=== PATIENT | male | born 1975 | race Two or more races ===

== ENCOUNTER 2024-08-05 11:32 | Emergency (ER) | payer OTHER ==
[~2024-08-05] VITALS: Ht 193 cm; Wt 114.0 kg
--- NOTE | 2024-08-05 11:52 | ED.PDOC ---
HPI Comments 49Y M presents to ED via EMS for chief complaint hypertension with headache, dizziness, weakness, and nausea. Pt states he has never experienced these symptoms before. 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 While at urgent care, pt was found to be hypertensive with SBP 180s-190s so they called 911. Upon EMS arrival, SBP was in the low 180s and pt was transferred to ED dept. Upon ED arrival, pt states symptoms have improved and he no longer has nausea. BP in ED 183/93. Per pt, PCP has not diagnosed pt with HTN but has been told he is "borderline hypertensive". Pt denies vision loss, chest pain, and SOB. No other symptoms reported. Time Seen by MD: 11:35 Reviewed Notes: Nurses Notes, Sports Team Manager Notes, Medications, Allergies Allergies: Coded Allergies: NO KNOWN ALLERGIES (Unverified , 08/05/24) Information Source: Patient, Emergency Med Personnel Mode of Arrival: EMS Brought in by: EMS Severity: Mild Timing: Hours Duration: Since onset Prehospital treatment: 12 Lead EKG Onset: At Rest Cardiac Risk Factors: None PE Risk Factors: None History of: None Modifying Factors: Nothing Associated Signs and Symptoms: Other Past Medical History PAST MEDICAL HISTORY: HTN Surgical History: Denies all surgeries Family History Family History: Unknown Social History Smoker: Non-Smoker Alcohol: Occasionally Drugs: Denies Drug Use Lives In: Home Constitutional: reports: weakness; denies: chills, diaphoresis, fatigue, fever, malaise, sweats, others EENTM: denies: blurred vision, double vision, ear bleeding, ear discharge, ear drainage, ear pain, ear ringing, eye pain, eye redness, hearing loss, mouth pain, mouth swelling, nasal discharge, nose bleeding, nose congestion, nose pain, photophobia, tearing, throat pain, throat swelling, voice changes, others Respiratory: denies: cough, hemoptysis, orthopnea, SOB at rest, shortness of breath, SOB with excertion, stridor, wheezing, others Cardiovascular: denies: chest pain, dizzy spells, diaphoresis, Dyspnea on exertion, edema, irregular heart beat, left arm pain, lightheadedness, palpitations, PND, syncope, others Gastrointestinal: reports: nausea; denies: abdomen distended, abdominal pain, blood streaked bowels, constipated, diarrhea, dysphagia, difficulty swallowing, hematemesis, melena, poor appetite, poor fluid intake, rectal bleeding, rectal pain, vomiting, others Genitourinary: denies: burning, dysuria, flank pain, frequency, hematuria, incontinence, penile discharge, penile sore, pain, testicle pain, testicle swelling, urgency, others Neurological: reports: dizziness, headache, weakness; denies: fainting, left sided numbness, left sided weakness, numbness, paresthesia, pre-existing deficit, right sided numbness, right sided weakness, seizure, speech problems, tingling, tremors, others Musculoskeletal: denies: back pain, gout, joint pain, joint swelling, muscle pain, muscle stiffness, neck pain, others Integumetry: denies: bruises, change in color, change in hair/nails, dryness, laceration, lesions, lumps, rash, wounds, others Allergic/Immunocompromised: denies: Difficulty Healing, Frequent Infections, Hives, Itching, others Hematologic/Lymphatic: denies: anemia, blood clots, easy bleeding, easy bruising, swollen glands, others Endocrine: denies: excessive hunger, excessive sweating, excessive thirst, excessive urination, flushing, intolerance to cold, intolerance to heat, unexplained weight gain, unexplained weight loss, others Psychiatric: denies: anxiety, bipolar disorder, depression, hopeless, panic disorder, schizophrenia, sleepless, suicidal, others All Other Systems: Reviewed and Negative Physical Exam General Appearance: No Apparent Distress HEENT: PERRL/EOMI Neck: Full Range of Motion, Normal Inspection Respiratory: Lungs Clear, No Accessory Muscle Use, No Respiratory Distress, Normal Breath Sounds Cardiovascular: No Edema, No JVD, Regular Rate/Rhythm Breast Exam: Deferred Gastrointestinal: Non Tender, Soft Genitalia: Deferred Pelvic: Deferred Rectal: Deferred Extremities: Normal inspection, Normal range of motion, Non-tender, No pedal edema Neurologic: Alert (Oriented x4), Normal Affect, Normal Mood, Other (Ambulatory. No gross focal deficit.) Cerebellar Function: NOT DONE Reflexes: NOT DONE Skin: Dry, Normal Color, Warm Lymphatic: NOT DONE EKG EKG : Comments Sinus rhythm, rate 53, normal intervals, normal axis, normal QRS, nonspecific T change. Was a procedure done? Was a procedure done?: No CP Differential Dx Differential Diagnosis: Electrolyte Disorder, MT Differential Diagnosis: CHF, HTN Essential, HTN Accelerated, HTN Encephalopathy, Other (CVA, TIA) X-Ray, Labs, Meds, VS Vital Signs Date Time Temp Pulse Resp B/P (MAP) Pulse Ox O2 Delivery O2 Flow Rate FiO2 08/05/24 19:46 98.2 69 18 156/87 (110) 98 98.2 08/05/24 18:00 98.4 80 17 153/80 (104) 95 98.4 08/05/24 17:35 68 08/05/24 17:08 97.9 08/05/24 15:15 98.4 08/05/24 15:15 157/83 08/05/24 15:06 98.0 51 19 157/83 (107) 99 98.0 08/05/24 15:06 51 19 97 Room Air* 0 21 08/05/24 11:52 98.5 62 18 183/93 (123) 99 98.5 08/05/24 11:50 53 Lab Test 08/05/24 14:47 08/05/24 11:47 08/05/24 11:30 Range/Units POC Glucose 91 70-106 mg/dl White Blood Count 6.4 4.4-10.8 10^3/uL Red Blood Count 5.10 4.5-5.90 10^6/uL Hemoglobin 15.4 13.5-17.5 g/dL Hematocrit 45.7 41.0-53.0 % Mean Corpuscular Volume 89.7 80.0-100.0 fL Mean Corpuscular Hemoglobin 30.3 28.0-32.0 pg Mean Corpuscular Hemoglobin Concent 33.7 32.0-36.0 g/dL Red Cell Distribution Width 13.0 11.8-14.3 % Platelet Count 242 140-450 10^3/uL Mean Platelet Volume 8.1 6.9-10.8 fL Neutrophils (%) (Auto) 51.4 37.0-80.0 % Lymphocytes (%) (Auto) 32.6 10.0-50.0 % Monocytes (%) (Auto) 10.5 0.0-12.0 % Eosinophils (%) (Auto) 4.7 0.0-7.0 % Basophils (%) (Auto) 0.8 0.0-2.0 % Neutrophils # (Auto) 3.3 1.6-8.6 10 ^3/uL Lymphocytes # (Auto) 2.1 0.4-5.4 10 ^3/uL Monocytes # (Auto) 0.7 0-1.3 10 ^3/uL Eosinophils # (Auto) 0.3 0-0.8 10 ^3/uL Basophils # (Auto) 0 0-0.2 10 ^3/uL Nucleated Red Blood Cells 0.2 % Sodium Level 138 136-145 mmol/L Potassium Level 3.7 3.5-5.1 mmol/L Chloride Level 106 98-107 mmol/L Carbon Dioxide Level 26 20-31 mmol/L Anion Gap 6 5-15 Blood Urea Nitrogen 12 9-23 mg/dL Creatinine 1.01 0.700-1.30 mg/dL Glomerular Filtration Rate Calc 92 >90 mL/min BUN/Creatinine Ratio 11.9 10.0-20.0 Serum Glucose 103 74-106 mg/dL Calcium Level 9.7 8.7-10.4 mg/dL Troponin I High Sensitivity 4 </=54 ng/L B-Type Natriuretic Peptide 16.23 0-100 pg/mL Urine Color Colorless Yellow Urine Clarity Clear Clear Urine pH 6.0 5.0-9.0 Urine Specific [place] 1.002 1.001-1.035 Urine Protein Negative Negative Urine Ketones Negative Negative Urine Blood Negative Negative /uL Urine Nitrite Negative Negative Urine Bilirubin Negative Negative Urine Urobilinogen Normal Negative mg/dL Urine Leukocyte Esterase Negative Negative /uL Urine RBC <1 0 - 3 /hpf Urine Microscopic WBC < 1 0-3 /HPF Urine Squamous Epithelial Cells None seen <5 /hpf Urine Bacteria None seen None Seen /hpf Urine Glucose Normal Normal mg/dL Current Medications Medications (Trade) Dose Ordered Sig/Lang Route Start Time Stop Time Status Last Admin Hydralazine HCl (Apresoline Injection) 10 mg ONCE ONCE IV 08/05/24 11:45 08/05/24 11:46 DC 08/05/24 15:15 Acetaminophen (Tylenol Tablet Or Capsule) 1,000 mg ONCE ONCE PO 08/05/24 11:45 08/05/24 11:46 DC 08/05/24 15:15 ORDERING PHYSICIAN: STEFANO BARRAGAN MD PROCEDURE(s): CXRP - CHEST PORTABLE REASON: high bp ORDER NUMBER(s): [id number], ACCESSION NUMBER(s): [id number] CHEST RADIOGRAPH Indication: high bp Technique: Single frontal view of the chest was obtained COMPARISON: None FINDINGS: Lines and Tubes: None Lungs: Clear Pleura: No effusion. No pneumothorax. Cardiomediastinal contours: Unremarkable Bones: Unremarkable IMPRESSION: No acute disease. . [facility] PHYSICIAN: STEFANO BARRAGAN MD PROCEDURE(s): HWOCT - HEAD WITHOUT CONTRAST REASON: high bp headache dizzy ORDER NUMBER(s): [id number], ACCESSION NUMBER(s): [id number] EXAM: CT HEAD WITHOUT CONTRAST HISTORY: high bp headache dizzy COMPARISON: None TECHNIQUE: Noncontrast axial CT images of the head were performed. Sagittal and coronal reformatted images were obtained. This CT exam was performed using 1 or more of the following dose reduction techniques: Automated exposure control, adjustment of the mA and/or kv according to patient size, or the use of iterative reconstruction techniques. Radiation Dose: CTDI volume is 53.9 mGy. Dose-length product is 973.72 mGy*cm FINDINGS: No intracranial hemorrhage, mass, midline shift, hydrocephalus, or evidence of acute large vessel infarct. There is a prominent perivascular space versus old lacunar infarct of the caudal aspect of the right basal ganglia (image 53, series 601). The partially-visualized paranasal sinuses are clear. The bilateral mastoid air cells and middle ear spaces are clear. No cranial fracture or scalp edema. IMPRESSION: No acute intracranial process. X-Ray, Labs, Meds, VS Comment 49-year-old male with a history of borderline hypertension brought in by EMS from [facility] for evaluation of elevated blood pressure, headache, generalized weakness and nausea. Vitals remarkable for heart rate 53, BP 183/93 Exam unremarkable Rhythm strip independently interpreted by me: Sinus bradycardia, rate 53, no ectopy. Chest x-ray unremarkable Head CT unremarkable CBC, basic metabolic panel, BNP and troponin unremarkable for any abnormality of acute significance The following was ordered for the patient: Hydralazine 20 mg IV, Tylenol 1 g p.o.. Patient was called multiple times for administration of medications, however there was no answer. It was assumed the patient had eloped from the ED. We were able to locate the patient and administer medications. On re- evaluation, patient's heart rate was 51 and blood pressure was 157/83. Case discussed with [facility]. Patient will be transferred to [place] [facility] for further evaluation. Authorization [id number] Time of 1ST Reevaluation: 12:05 Reevaluation 1ST: Unchanged Patient Education/Counseling: Diagnosis, Treatment Family Education/Counseling: No Family Present Departure 1 Departure Time of Disposition: 12:44 Impression: Primary Impression: Hypertensive urgency Additional Impression: Symptomatic bradycardia Disposition: 02 SHORT TERM HOSPITAL Condition: Guarded Critical Care Note Critical Care Time?: No Stability Stability form required: No Heart Score Heart Score: Heart Score Response (Comments) Value History N/A 0 EKG N/A 0 Age N/A 0 Risk Factors N/A 0 Troponin N/A 0 Total 0 I personally scribed for STEFANO BARRAGAN MDBAR) on 08/05/24 at 11:52. Electronically submitted by Anuja Crowder ([facility]). I personally scribed for STEFANO BARRAGAN MDBAR) on 08/05/24 at 12:27. Electronically submitted by Anuja Crowder ([facility]). I personally scribed for STEFANO BARRAGAN MD ([facility]) on 08/05/24 at 12:27. Electronically submitted by Anuja Crowder ([facility]). I personally scribed for STEFANO BARRAGAN MD (CARY) on 08/05/24 at 17:37. Electronically submitted by Anuja Crowder ([facility]). I personally scribed for STEFANO BARRAGAN MD (ASHLEYBAR) on 08/05/24 at 20:39. Electronically submitted by Jean Carlos Encinas ([facility]). STEFANO BARRAGAN MD Aug 05, 2024 11:52
[2024-08-05 11:55] LABS: Basophils # (auto) 0 10 ^3/uL (0-0.2); Basophils % (auto) 0.8 % (0.0-2.0); Eosinophils # (auto) 0.3 10 ^3/uL (0-0.8); Eosinophils % (auto) 4.7 % (0.0-7.0); Hematocrit 45.7 % (41.0-53.0); Hemoglobin 15.4 g/dL (13.5-17.5); Lymphocytes # (auto) 2.1 10 ^3/uL (0.4-5.4); Lymphocytes % (auto) 32.6 % (10.0-50.0); Mean Corpuscular Hemoglobin 30.3 pg (28.0-32.0); Mean Corpuscular Hgb Conc. 33.7 g/dL (32.0-36.0); Mean Corpuscular Volume 89.7 fL (80.0-100.0); Monocytes # (auto) 0.7 10 ^3/uL (0-1.3); Monocytes % (auto) 10.5 % (0.0-12.0); Neutrophils # (auto) 3.3 10 ^3/uL (1.6-8.6); Neutrophils % (auto) 51.4 % (37.0-80.0); Nucleated Red Blood Cells % 0.2 %; Platelet Count (auto) 242 10^3/uL (140-450); White Blood Cell 6.4 10^3/uL (4.4-10.8)
[2024-08-05 11:57] LABS: Urine Bacteria None Seen /hpf (None Seen)
[2024-08-05 12:04] LABS: Chloride 106 mmol/L (98-107); Potassium 3.7 mmol/L (3.5-5.1); Sodium 138 mmol/L (136-145)
[2024-08-05 12:05] LABS: Urine Blood Negative /uL (Negative); Urine Clarity Clear (Clear); Urine Color Colorless (Yellow); Urine Protein, UAD Negative (Negative); Urine Specific Gravity 1.002 (1.001-1.035); Urine Squamous Epithelial Cell None Seen /hpf (<5); Urine Urobilinogen Normal (Negative); Urine WBC < 1 /HPF (0-3)
[2024-08-05 12:05] LABS: Anion Gap 6 (5-15); Calcium 9.7 mg/dL (8.7-10.4); Carbon Dioxide 26 mmol/L (20-31)
[2024-08-05 12:10] LABS: BUN/Creatinine Ratio 11.9 (10.0-20.0); Blood Urea Nitrogen 12 mg/dL (9-23); Glucose 103 mg/dL (74-106)
--- NOTE | 2024-08-05 12:12 | DVH ---
CHEST RADIOGRAPH Indication: high bp Technique: Single frontal view of the chest was obtained COMPARISON: None FINDINGS: Lines and Tubes: None Lungs: Clear Pleura: No effusion. No pneumothorax. Cardiomediastinal contours: Unremarkable Bones: Unremarkable IMPRESSION: No acute disease.
--- NOTE | 2024-08-05 12:24 | DVH ---
EXAM: CT HEAD WITHOUT CONTRAST HISTORY: high bp headache dizzy COMPARISON: None TECHNIQUE: Noncontrast axial CT images of the head were performed. Sagittal and coronal reformatted i mages were obtained. This CT exam was performed using 1 or more of the following dose reduction techn iques: Automated exposure control, adjustment of the mA and/or kv according to patient size, or the u se of iterative reconstruction techniques. Radiation Dose: CTDI volume is 53.9 mGy. Dose-length product is 973.72 mGy*cm FINDINGS: No intracranial hemorrhage, mass, midline shift, hydrocephalus, or evidence of acute large vessel infarct. There is a prominent perivascular space versus old lacunar infarct of the caudal aspe ct of the right basal ganglia (image 53, series 601). The partially-visualized paranasal sinuses are clear. The bilateral mastoid air cells and middle ear spaces are clear. No cranial fracture or scalp edema. IMPRESSION: No acute intracranial process.
[2024-08-05 15:06] VITALS: PULSE 51; RESP 19; O2SAT 97
[2024-08-05] MEDS: hydrALAZINE HCL 20 MG/ML VL ONE (15:15)
[2024-08-05] MEDS: ACETAMINOPHEN 500 MG TAB or CAP PO ONE ×2 (15:15→15:20)
[2024-08-05] MEDS: hydrALAZINE HCL 20 MG/ML VL IV ONE (15:15)
--- NOTE | 2024-08-05 19:14 | ECG ---
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
[2024-08-05 21:09] VITALS: BP 141/86; PULSE 62; RESP 16; TEMP 98.9; O2SAT 99
== END 2024-08-05 17:26 | disposition short-term general hospital (02) ==
LOC: EDBD 11:32 → ER 11:40
DX: I16.0 Hypertensive urgency (principal); R00.1 Bradycardia, unspecified
CPT/HCPCS: 36415; 70450; 71045; 80048; 81001; 82947; 83880; 84484; 85025; 93005; 96374; 99285; J0360; 82962